=== PATIENT | female | born 1965 | race Caucasian/White ===

== ENCOUNTER 2017-04-18 00:19 | Emergency (ER) | payer SELFPAY ==
[~2017-04-18] VITALS: Ht 162.6 cm; Wt 71.5 kg
[2017-04-18 00:53] VITALS: Ht 162.6 cm; Wt 71.5 kg
[2017-04-18] MEDS ORDERED: morphine 4 MG/ML VIAL IV STA (02:09)
[2017-04-18] MEDS ORDERED: ONDANSETRON 4 MG INJ IV STA (02:09)
[2017-04-18] MEDS ORDERED: SOD CHLORIDE 0.9% 1,000 ML IV STA (02:09)
[2017-04-18 02:46] LABS: BASOPHILS % 0.5 % (0.0-2.0); EOSINOPHILS # 0.3 10^3/ul (0.0-0.5); EOSINOPHILS % 3.2 % (0.0-7.0); HEMATOCRIT 41.3 % (37.0-47.0); HEMOGLOBIN 14.4 g/dl (12.0-16.0); LYMPHOCYTES # 4.4 10^3/ul (0.8-2.9); LYMPHOCYTES % 56.4 % (15.0-51.0); MEAN CORPUSCULAR HEMOGLOBIN 29.8 pg (29.0-33.0); MEAN CORPUSCULAR HGB CONC 34.9 g/dl (32.0-37.0); MEAN CORPUSCULAR VOLUME 85.5 fl (82.0-101.0); MEAN PLATELET VOLUME 10.1 fl (7.4-10.4); MONOCYTE # 0.5 10^3/ul (0.3-0.9); MONOCYTES % 5.9 % (0.0-11.0); NEUTROPHILS % 33.7 % (39.0-77.0); PLATELET COUNT 309 10^3/UL (140-415); RED BLOOD COUNT 4.83 10^6/ul (4.20-5.40); RED CELL DISTRIBUTION WIDTH 13.3 % (11.5-14.5); WHITE BLOOD COUNT 7.9 10^3/ul (4.8-10.8)
--- NOTE | 2017-04-18 03:02 | RADRPT ---
PROCEDURE: CT ABDOMEN/PELVIS WITHOUT CONTRAST CLINICAL INDICATION: 51-year-old female with abdominal pain. TECHNIQUE: The study was performed utilizing a [employer] VCT 64-slice CT scanner. Direct axia l sections were obtained through the abdomen and pelvis without the use of intravenous contrast mate rial. Sagittal and coronal reformations were obtained. One or more of the following dose reduction t echniques were utilized: automated exposure control, adjustment of the mA and/or kV according to pat ient's size or use of iterative reconstruction technique. The images were reviewed on a PACS workst [facility]. CTD/vol = 11.5 mGy; Total Exam DLP = 673.3 mGy-cm. COMPARISON: CT abdomen/pelvis February 02, 2014. FINDINGS: The lung bases are unremarkable. There is no evidence for significant pleural effusion. The liver has a normal size and contour without focal areas of abnormal density. No intrahepatic nor extrahepa tic biliary ductal dilatation is seen. Surgical clips are present within the gallbladder fossa from prior cholecystectomy. The pancreas is without areas of abnormal attenuation. The spleen is identif ied and has a normal size without abnormal density. The adrenal glands are unremarkable. The kidneys are without abnormal density. No hydroureteronephrosis nor nephroureterolithiasis is evident. The u rinary bladder contains urine. There is fecalization of the distal small bowel with mild retained st ool identified within the colon without gross bowel obstruction. The appendix is visualized and is w ithout abnormal thickening or surrounding inflammatory reaction. The uterus is unremarkable. There is no significant free fluid. There is a circumaortic left renal vein present. The aortoiliac vessels are without aneurysmal dilatation. The osseous structures are intact. IMPRESSION: 1. Status post cholecystectomy. 2. No CT evidence for obstructive uropathy or renal calculi. 3. Fecalization of the distal small bowel with mild retained colonic stool without bowel obstructio n. 4. No CT evidence for appendicitis. .Ruslan Louise MD, Date Time Electronically viewed and signed by .Ruslan Louise MD, on 04/18/2017 03:01 .Simon/
[2017-04-18 03:21] LABS: ADD UMIC NO; UR ASCORBIC ACID NEGATIVE (NEGATIVE); UR BILIRUBIN (Dip) NEGATIVE (NEGATIVE); UR BLOOD (Dip) NEGATIVE (NEGATIVE); UR CLARITY CLEAR (CLEAR); UR COLOR STRAW (YELLOW); UR GLUCOSE (Dip) NEGATIVE (NEGATIVE); UR KETONES (Dip) NEGATIVE (NEGATIVE); UR LEUKOCYTE ESTERASE (Dip) NEGATIVE Leu/ul (NEGATIVE); UR NITRITE (Dip) NEGATIVE (NEGATIVE); UR RBC 0 /HPF (0-5); UR SPECIFIC GRAVITY (Dip) 1.008 (1.003-1.030); UR TOTAL PROTEIN (Dip) NEGATIVE (NEGATIVE); UR UROBILINOGEN (Dip) NEGATIVE (NEGATIVE)
[2017-04-18 03:29] LABS: ALBUMIN 4.7 g/dl (3.3-4.9); ALBUMIN/GLOBULIN RATIO 1.23; BILIRUBIN,INDIRECT 0.3 mg/dl (0-1.1); BILIRUBIN,TOTAL 0.3 mg/dl (0.2-1.3); CALCIUM 9.6 mg/dl (8.4-10.2); CREATININE 0.8 mg/dl (0.44-1.00); POTASSIUM 4.2 mmol/L (3.5-5.1); TOTAL PROTEIN 8.5 g/dl (6.1-8.1)
[2017-04-18] MEDS ORDERED: ONDA4TAB11 PO (03:56)
[2017-04-18] MEDS ORDERED: POLY17PO6 PO (03:56)
[2017-04-18] MEDS ORDERED: MAGN296S40 PO (03:56)
[2017-04-18] MEDS ORDERED: NAPR-688 PO (03:56)
--- NOTE | 2017-04-18 04:03 | ERD ---
ER Documentation Chief Complaint Date/Time DATE: 04/18/17 TIME: 03:57 Chief Complaint RLQ AP YESTERDAY VOMIT X3 DENIES FEVER. HPI This 51-year-old female presents with intermittent right lower quadrant and sometimes left mid abdominal pain for almost 2 days now. She did vomit 3 times as well. Denies any fever chills dysuria or chest pain. ROS All systems reviewed and are negative except as per history of present illness. Medications Home Meds Active Scripts Ondansetron (Zofran Odt) 4 Mg Tab.rapdis, 4 MG PO Q6, #20 Prov:SRIDHAR JACKSON DO 04/18/17 Naproxen* (Naproxen*) 500 Mg Tablet, 500 MG PO BID Y for PAIN, #14 TAB Prov:SRIDHAR JACKSON DO 04/18/17 Magnesium Citrate* (Magnesium Citrate*) 296 Ml Solution, 296 ML PO ONCE, #1 BOTTLE Prov:SRIDHAR JACKSON DO 04/18/17 Polyethylene Glycol* (Miralax*) 17 Gm Powd.pack, 17 GM PO DAILY, #7 Prov:SRIDHAR JACKSON DO 04/18/17 Allergies Allergies: Coded Allergies: No Known Allergy (Unverified , 02/02/14) PMhx/Soc Medical and Surgical Hx: pt denies Medical Hx, pt denies Surgical Hx History of Surgery: No Anesthesia Reaction: No Hx Neurological Disorder: No Hx Respiratory Disorders: No Hx Cardiac Disorders: No Hx Psychiatric Problems: No Hx Miscellaneous Medical Probl: No Hx Alcohol Use: No Hx Substance Use: No Hx Tobacco Use: No Smoking Status: Never smoker Physical Exam Vitals Vital Signs Date Time Temp Pulse Resp B/P Pulse Ox O2 Delivery O2 Flow Rate FiO2 04/18/17 00:53 98.1 63 20 140/91 97 Physical Exam Const: [] No distress Head: Atraumatic Eyes: Normal Conjunctiva ENT: Normal External Ears, Nose and Mouth. Neck: Full range of motion..~ No meningismus. Resp: Clear to auscultation bilaterally Cardio: Regular rate and rhythm, no murmurs Abd: Soft,Mild right sided abdominal pain as well as mild left lower quadrant abdominal pain without guarding or rebound., non distended. Normal bowel sounds Skin: No petechiae or rashes Ext: No cyanosis, or edema Neur: Awake and alertAnd oriented 3, no focal deficits Psych: Normal Mood and Affect Result Diagram: 04/18/1721904/18/17 022 Results 24 hrs Laboratory Tests Test 04/18/17 02:20 04/18/17 02:22 White Blood Count 7.910^3/ul Red Blood Count 4.8310^6/ul Hemoglobin 14.4g/dl Hematocrit 41.3% Mean Corpuscular Volume 85.5fl Mean Corpuscular Hemoglobin 29.8pg Mean Corpuscular Hemoglobin Concent 34.9g/dl Red Cell Distribution Width 13.3% Platelet Count 98238^3/UL Mean Platelet Volume 10.1fl Neutrophils % 33.7% Lymphocytes % 56.4% Monocytes % 5.9% Eosinophils % 3.2% Basophils % 0.5% Nucleated Red Blood Cells % 0.0/100WBC Neutrophils # (Manual) 2.710^3/ul Lymphocytes # 4.410^3/ul Monocytes # 0.510^3/ul Eosinophils # 0.310^3/ul Basophils # 0.010^3/ul Nucleated Red Blood Cells # 0.010^3/ul Sodium Level 144mmol/L Potassium Level 4.2mmol/L Chloride Level 106mmol/L Carbon Dioxide Level 25mmol/L Anion Gap 17 Blood Urea Nitrogen 8mg/dl Creatinine 0.80mg/dl Glucose Level 100mg/dl Calcium Level 9.6mg/dl Total Bilirubin 0.3mg/dl Direct Bilirubin 0.00mg/dl Indirect Bilirubin 0.3mg/dl Aspartate Amino Transf (AST/SGOT) 31IU/L Alanine Aminotransferase (ALT/SGPT) 46IU/L Alkaline Phosphatase 87IU/L Total Protein 8.5g/dl Albumin 4.7g/dl Globulin 3.80g/dl Albumin/Globulin Ratio 1.23 Lipase 87U/L Urine Color STRAW Urine Clarity CLEAR Urine pH 5.0 Urine Specific [place] 1.008 Urine Ketones NEGATIVEmg/dL Urine Nitrite NEGATIVEmg/dL Urine Bilirubin NEGATIVEmg/dL Urine Urobilinogen NEGATIVEmg/dL Urine Leukocyte Esterase NEGATIVELeu/ul Urine Microscopic RBC 0/HPF Urine Microscopic WBC 0/HPF Urine Hemoglobin NEGATIVEmg/dL Urine Glucose NEGATIVEmg/dL Urine Total Protein NEGATIVEmg/dl Current Medications Medications (Trade) Dose Ordered Sig/Matt Route PRN Reason Start Time Stop Time Status Last Admin Dose Admin Sodium Chloride (NS) 1,000 ml @ 1,000 mls/hr Q1H STAT IV 04/18/17 02:09 04/18/17 03:08 DC 04/18/17 02:28 Morphine Sulfate (morphine) 4 mg ONCE STAT IV 04/18/17 02:09 04/18/17 02:12 DC 04/18/17 02:28 Ondansetron HCl (Zofran Inj) 4 mg ONCE STAT IV 04/18/17 02:09 04/18/17 02:12 DC 04/18/17 02:27 Procedures/MDM Abdominal pain consistent with physical exam and CAT scan of constipation. No serious laboratory abnormalities. Patient was initially given morphine and Zofran which resolved her nausea completely. She also hydrated liter of normal saline. CAT scan shows only stool retention without any acute surgical abnormality. She is feeling better the emergency room going to give her Toradol as well. Discharging with naproxen, magnesium citrate, MiraLAX, naproxen. Return precautions and primary care follow-up given. CT abdomen pelvis interpretation: I see only retained stool throughout the colon , no surgical emergency, I see no free air or perforation, see no obstruction or abnormal fat stranding. No fractures Departure Diagnosis: Primary Impression: Acute abdominal pain Additional Impression: Constipation Condition: Stable SRIDHAR JACKSON DO Apr 18, 2017 04:03
[2017-04-18 04:27] VITALS: BP 101/58; PULSE 63; RESP 16; TEMP 98.1
== END 2017-04-18 04:28 | disposition home or self-care (01) ==
LOC: E/R 00:19
DX: R10.31 Right lower quadrant pain (principal); K59.00 Constipation, unspecified; R10.32 Left lower quadrant pain; R11.10 Vomiting, unspecified
CPT/HCPCS: 36415; 74176; 80053; 81003; 83690; 85025; 96374; 96375; 99285; J2270; J2405; J7030

== ENCOUNTER 2018-10-29 23:11 | Emergency (ER) | payer SELFPAY ==
[~2018-10-29] VITALS: Ht 160 cm; Wt 74.6 kg
[~2018-10-29 23:11] MED LIST: MAGN296S40 PO; NAPR-688 PO; ONDA4TAB11 PO; POLY17PO6 PO
[2018-10-29 23:32] VITALS: BP 127/74; PULSE 65; RESP 18; Ht 160 cm; Wt 74.6 kg
== END 2018-10-30 02:00 | disposition left against medical advice (07) ==
LOC: FTE 23:11
DX: Z53.21 Procedure and treatment not carried out due to patient leaving prior to being seen by health care provider (principal)